=== PATIENT | male | born 1990 ===

== ENCOUNTER 2019-09-25 19:15 | Emergency (ER) | payer OTHER ==
[2019-09-25 19:31] VITALS: BP 127/85
[2019-09-25] MEDS ORDERED: MORPHINE 4 MG/1 ML INJ IV ONE (19:41)
[2019-09-25] MEDS ORDERED: ONDANSETRON 4 MG/2 ML INJ IV ONE (19:41)
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
--- NOTE | 2019-09-25 20:57 | Cat Scan Report ---
CLINICAL DATA: [facility] [place]CHNICAL DATA: CT imaging of the lumbar spine was performed from reconstructed images of the CT abdomen pelvis. Imag es were reconstructed in the axial, coronal, and sagittal imaging planes. All CT scans at this location are performed using CT dose reduction for ALARA by means of automated e xposure control. FINDINGS: Diagnostic imaging is somewhat limited secondary to the decreased resolution sagittal and coronal ref ormations L1-2: The thecal sac is normal. No evidence of disc herniation or disc bulge. Facets within normal limits. No evidence of spinal stenosis. L2-3: The thecal sac is normal. No evidence of disc herniation or disc bulge. Facets within normal limits. No evidence of spinal stenosis. L3-4: The thecal sac is normal. No evidence of disc herniation or disc bulge. Facets within normal limits. No evidence of spinal stenosis. L4-5: The thecal sac is normal. No evidence of disc herniation or disc bulge. Facets within normal limits. No evidence of spinal stenosis. L5-S1: The thecal sac is normal. No evidence of disc herniation or disc bulge. Facets within mell l limits. No evidence of spinal stenosis. IMPRESSION: No evidence of significant disc bulge, disc herniation, spinal stenosis, or apophyseal joint degenera tive changes. Signer Name: David Glez MD Signed: 09/25/2019 8:53 PM Workstation Name: [id number]
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
== END 2019-09-25 23:11 | disposition home or self-care (01) ==
LOC: ED 19:15
DX: S39.012A Strain of muscle, fascia and tendon of lower back, initial encounter (principal); M25.561 Pain in right knee; M25.512 Pain in left shoulder; M25.532 Pain in left wrist; Z79.899 Other long term (current) drug therapy; V49.49XA Driver injured in collision with other motor vehicles in traffic accident, initial encounter; Y93.89 Activity, other specified; Y92.410 Unspecified street and highway as the place of occurrence of the external cause; Y99.8 Other external cause status
CPT/HCPCS: 70450; 72125; 72128; 72131; 73030; 73110; 73562; 96374; 96375; 99285; J2270; J2405